=== PATIENT | female | born 1965 | race Caucasian/White ===

== ENCOUNTER 2017-04-08 08:15 | Outpatient (CLI) | payer BC, OTHER ==
[2017-04-08 12:41] LABS: BASOPHILS % (AUTO) 0.6 %; EOSINOPHILS # (AUTO) 0.1 10^3/uL (0.0-0.7); EOSINOPHILS % (AUTO) 1.5 %; HCT - HEMATOCRIT 43.8 % (37.0-47.0); HGB - HEMOGLOBIN 14.8 g/dL (12.0-16.0); LYMPHOCYTES # (AUTO) 2.5 10^3/uL (1.5-3.5); LYMPHOCYTES % (AUTO) 45.1 %; MEAN CORPUSCULAR HEMOGLOBIN 30.5 pg (27.0-31.0); MEAN CORPUSCULAR HGB CONC 33.8 g/dL (32.0-36.0); MEAN CORPUSCULAR VOLUME 90.3 fL (81.0-99.0); MEAN PLATELET VOLUME 8.5 fL (7.9-10.8); MONOCYTES # (AUTO) 0.4 10^3/uL (0.0-1.0); NEUTROPHILS # (AUTO) 2.6 10^3/uL (1.5-6.6); NEUTROPHILS % (AUTO) 45.8 %; NUCLEATED RED BLOOD CELLS AUTO 0.1 /100WBC; RED BLOOD COUNT 4.84 10^6/uL (4.20-5.40); RED CELL DISTRIBUTION WIDTH 13.2 % (12.0-15.0); UNCORRECTED WHITE BLOOD COUNT 5.6 x10^3/uL; WHITE BLOOD COUNT 5.6 x10^3/uL (4.8-10.8)
[2017-04-08 13:06] LABS: ALBUMIN/GLOBULIN RATIO 1.2 (1.0-2.2); BILIRUBIN,TOTAL 0.9 mg/dL (0.2-1.0); BUN - BLOOD UREA NITROGEN 19 mg/dL (6-20); CALCIUM 9.9 mg/dL (8.5-10.3); CARBON DIOXIDE - CO2 28 mmol/L (21-32); CHLORIDE 103 mmol/L (101-111); CHOLESTEROL 253 mg/dL; CREATININE 0.8 mg/dL (0.4-1.0); GFR - MDRD 76 (>89); GLUCOSE 87 mg/dL (70-100); HDL CHOLESTEROL 64 mg/dL; LDL/HDL RATIO 2.4 (<4.4); POTASSIUM 3.9 mmol/L (3.5-5.0); SODIUM 140 mmol/L (135-145); TOTAL PROTEIN 8.1 g/dL (6.7-8.2); TRIGLYCERIDES 170 mg/dL; VLDL CHOLESTEROL 34 mg/dL
== END 2017-04-08 08:16 | disposition home or self-care (01) ==
LOC: LAB.WCP 08:15
PROVIDERS: ATTEND Family Medicine
DX: Z00.00 Encounter for general adult medical examination without abnormal findings (principal); E78.5 Hyperlipidemia, unspecified; E03.9 Hypothyroidism, unspecified
CPT/HCPCS: 36415; 80053; 80061; 84443; 85025

== ENCOUNTER 2017-04-22 15:14 | Outpatient (CLI) | payer OTHER ==
--- NOTE | 2017-04-24 17:23 | Mammography Report ---
DIGITAL SCREENING MAMMOGRAM: 04/22/2017 CLINICAL INDICATION: A 52-year-old for screening. COMPARISON: 09/2015 TECHNIQUE: Routine CC and MLO projections were obtained of the breasts. FINDINGS: Parenchymal tissue within both breasts is heterogeneously dense, which may lower the sensi tivity of mammography; however, there are no dominant masses, suspicious microcalcifications, or seco ndary signs of malignancy. In comparison to the previous studies, there are no significant changes. ASSESSMENT: NO MAMMOGRAPHIC EVIDENCE OF MALIGNANCY. NO SIGNIFICANT INTERVAL CHANGES. RECOMMENDATION: Screening mammography is recommended annually. BIRADS category 1 - negative. STANDARD QUALIFYING STATEMENTS 1. This examination was reviewed with the aid of Computed-Aided Detection (CAD). 2. A negative or benign imaging report should not delay biopsy if clinically suspicious findings are present. Consider surgical consultation if warranted. More than 5% of cancers are not identified b y imaging. 3. Dense breasts may obscure an underlying neoplasm. JOB #: [id number] EXT JOB #:[id number]
== END 2017-04-22 15:15 | disposition home or self-care (01) ==
LOC: DI.N 15:14
PROVIDERS: ATTEND Family Medicine
DX: Z12.31 Encounter for screening mammogram for malignant neoplasm of breast (principal)
CPT/HCPCS: 77067

== ENCOUNTER 2019-09-28 13:35 | Outpatient (CLI) | payer OTHER ==
--- NOTE | 2019-09-29 09:26 | XRAY Report ---
Reason: BICEP TENDONITIS RIGHT Procedure Date: 09/28/2019 Accession Number: [id number] / [id number] Procedure: WCP - Shoulder 2 View RT CPT Code: Final Report FULL RESULT: EXAM: RIGHT SHOULDER RADIOGRAPHY EXAM DATE: 09/28/2019 02:18 PM. CLINICAL HISTORY: BICEP TENDONITIS RIGHT. COMPARISON: None. TECHNIQUE: 2 views. FINDINGS: Bones: Normal. No fracture or bone lesion. Joints: The glenohumeral and acromioclavicular joints are normal. Soft tissues: The visualized hemithorax is unremarkable. No soft tissue swelling. IMPRESSION: Normal shoulder radiography. RADIA
== END 2019-09-28 23:59 | disposition home or self-care (01) ==
LOC: DI.WCP 13:35
PROVIDERS: ATTEND Family Medicine
DX: M75.21 Bicipital tendinitis, right shoulder (principal)

== ENCOUNTER 2020-07-24 10:51 | Outpatient (CLI) | payer OTHER ==
[2020-07-24 18:39] LABS: BASOPHILS # (AUTO) 0.1 10^3/uL (0.0-0.1); BASOPHILS % (AUTO) 1.1 %; EOSINOPHILS # (AUTO) 0.2 10^3/uL (0.0-0.7); EOSINOPHILS % (AUTO) 3.6 %; HGB - HEMOGLOBIN 15.1 g/dL (12.0-16.0); LYMPHOCYTES # (AUTO) 1.9 10^3/uL (1.5-3.5); MEAN CORPUSCULAR HEMOGLOBIN 30.4 pg (27.0-31.0); MEAN CORPUSCULAR HGB CONC 31.9 g/dL (32.0-36.0); MEAN CORPUSCULAR VOLUME 95.4 fL (81.0-99.0); MEAN PLATELET VOLUME 10.8 fL (7.9-10.8); MONOCYTES # (AUTO) 0.3 10^3/uL (0.0-1.0); MONOCYTES % (AUTO) 6.1 %; PLT - PLATELET COUNT 278 10^3/uL (130-450); RED BLOOD COUNT 4.96 10^6/uL (4.20-5.40); RED CELL DISTRIBUTION WIDTH 12.8 % (12.0-15.0); WHITE BLOOD COUNT 4.4 x10^3/uL (4.8-10.8)
[2020-07-24 19:03] LABS: ALBUMIN 4.5 g/dL (3.2-5.5); ALBUMIN/GLOBULIN RATIO 1.3 (1.0-2.2); ALKALINE PHOSPHATASE 84 IU/L (42-121); ALT ALANINE AMINOTRANSFERASE 20 IU/L (10-60); AST ASPARTATE AMINOTRANSFERASE 21 IU/L (10-42); BUN - BLOOD UREA NITROGEN 21 mg/dL (6-20); CARBON DIOXIDE - CO2 27 mmol/L (21-32); CHLORIDE 99 mmol/L (101-111); CHOL/HDL RATIO 4.2 (<4.4); CHOLESTEROL 275 mg/dL; CREATININE 0.8 mg/dL (0.4-1.0); GLUCOSE 91 mg/dL (70-100); HDL CHOLESTEROL 66 mg/dL; LDL CHOLESTEROL,CALCULATED 173 mg/dL; LDL/HDL RATIO 2.6 (<4.4); SODIUM 142 mmol/L (135-145); VLDL CHOLESTEROL 36 mg/dL
== END 2020-07-24 10:52 | disposition home or self-care (01) ==
LOC: LAB.N 10:51
PROVIDERS: ATTEND Family Medicine
DX: Z00.00 Encounter for general adult medical examination without abnormal findings (principal); E03.9 Hypothyroidism, unspecified
CPT/HCPCS: 36415; 80053; 80061; 83721; 84443; 85025

== ENCOUNTER 2020-08-22 08:44 | Outpatient (CLI) | payer OTHER ==
--- NOTE | 2020-08-23 12:28 | Mammography Report ---
BILATERAL DIGITAL SCREENING MAMMOGRAM 3D/2D: 08/22/2020 CLINICAL: Routine screening. Comparison is made to exams dated: 04/22/2017 mammogram and 09/19/2015 mammogram - [facility]. The tissue of both breasts is heterogeneously dense. This may lower the sensitivity of mamm ography. No significant masses, calcifications, or other findings are seen in either breast. There has been no significant interval change. IMPRESSION: NEGATIVE There is no mammographic evidence of malignancy. A 1 year screening mammogram is recommended. This exam was interpreted at Station ID: [id number]. NOTE: For mammograms, a report in lay terms will be sent to the patient. Approximately 15% of breast malignancies will not be visualized mammographically. In the management of a palpable breast mass, a negative mammogram must not discourage biopsy of a clinically suspicious lesion. Electronically Signed By: Harpal Arredondo M.D. ar/malloryrad:08/22/2020 09:30:23 ACR BI-RADS Category 1: Negative 3341F PARENCHYMAL PATTERN: (D) - The breast(s) demonstrate(s) heterogeneously dense fibroglandular norman rojas. BI-RADS CATEGORY: (1) - 1 RECOMMENDATION: (ANNUAL) - Recommend routine annual screening mammography. [id number] 1 year screening LATERALITY: (B)
== END 2020-08-22 08:45 | disposition home or self-care (01) ==
LOC: DI.N 08:44
DX: Z12.31 Encounter for screening mammogram for malignant neoplasm of breast (principal)
CPT/HCPCS: 77067

== ENCOUNTER 2021-07-30 16:28 | Outpatient (CLI) | payer OTHER ==
[2021-07-30 21:10] LABS: BASOPHILS # (AUTO) 0.1 10^3/uL (0.0-0.1); EOSINOPHILS # (AUTO) 0.1 10^3/uL (0.0-0.7); EOSINOPHILS % (AUTO) 2.5 %; HCT - HEMATOCRIT 46.4 % (37.0-47.0); LYMPHOCYTES # (AUTO) 1.9 10^3/uL (1.5-3.5); LYMPHOCYTES % (AUTO) 40.1 %; MEAN CORPUSCULAR HEMOGLOBIN 30.4 pg (27.0-31.0); MEAN CORPUSCULAR HGB CONC 32.3 g/dL (32.0-36.0); MEAN CORPUSCULAR VOLUME 94.1 fL (81.0-99.0); MEAN PLATELET VOLUME 10.5 fL (7.9-10.8); MONOCYTES # (AUTO) 0.3 10^3/uL (0.0-1.0); MONOCYTES % (AUTO) 6.6 %; NEUTROPHILS # (AUTO) 2.4 10^3/uL (1.5-6.6); NEUTROPHILS % (AUTO) 49.4 %; PLT - PLATELET COUNT 282 10^3/uL (130-450); RED BLOOD COUNT 4.93 10^6/uL (4.20-5.40); RED CELL DISTRIBUTION WIDTH 12.7 % (12.0-15.0); WHITE BLOOD COUNT 4.8 x10^3/uL (4.8-10.8)
[2021-07-30 21:26] LABS: ALBUMIN 4.4 g/dL (3.2-5.5); ALBUMIN/GLOBULIN RATIO 1.4 (1.0-2.2); ALKALINE PHOSPHATASE 71 IU/L (42-121); ALT ALANINE AMINOTRANSFERASE 20 IU/L (10-60); AST ASPARTATE AMINOTRANSFERASE 18 IU/L (10-42); BILIRUBIN,TOTAL 0.8 mg/dL (0.2-1.0); BUN - BLOOD UREA NITROGEN 22 mg/dL (6-20); CALCIUM 9.1 mg/dL (8.5-10.3); CARBON DIOXIDE - CO2 29 mmol/L (21-32); CHLORIDE 102 mmol/L (101-111); CHOL/HDL RATIO 2.8 (<4.4); CHOLESTEROL 188 mg/dL; CREATININE 0.9 mg/dL (0.4-1.0); GFR - MDRD 65 (>89); GLUCOSE 93 mg/dL (70-100); HDL CHOLESTEROL 68 mg/dL; LDL CHOLESTEROL,CALCULATED 90 mg/dL; LDL/HDL RATIO 1.3 (<4.4); SODIUM 141 mmol/L (135-145); TOTAL PROTEIN 7.6 g/dL (6.7-8.2); TRIGLYCERIDES 148 mg/dL; VLDL CHOLESTEROL 30 mg/dL
[2021-07-30 21:38] LABS: THYROID STIMULATING HORMONE 1.52 uIU/mL (0.34-5.60)
== END 2021-07-30 16:29 | disposition home or self-care (01) ==
LOC: LAB.N 16:28
PROVIDERS: ATTEND Family Medicine
DX: Z00.00 Encounter for general adult medical examination without abnormal findings (principal); E78.5 Hyperlipidemia, unspecified; E03.9 Hypothyroidism, unspecified
CPT/HCPCS: 36415; 80053; 80061; 83721; 84443; 85025

== ENCOUNTER 2021-08-01 08:00 | Outpatient (CLI) | payer OTHER ==
[2021-08-01 19:22] LABS: FECAL OCCULT BLOOD (FIT) NEGATIVE (NEGATIVE)
== END 2021-08-01 23:59 ==
LOC: LAB 08:00
PROVIDERS: ATTEND Family Medicine
DX: Z12.11 Encounter for screening for malignant neoplasm of colon (principal)
CPT/HCPCS: 82274

== ENCOUNTER 2021-11-07 08:14 | Outpatient (CLI) | payer OTHER ==
--- NOTE | 2021-11-08 11:01 | Mammography Report ---
BILATERAL DIGITAL SCREENING MAMMOGRAM 3D/2D: 11/07/2021 CLINICAL: Routine screening. Comparison is made to exams dated: 08/22/2020 mammogram, 04/22/2017 mammogram, and 09/19/2015 mammogram - [facility]. The tissue of both breasts is heterogeneously dense. This may lower th e sensitivity of mammography. No significant masses, calcifications, or other findings are seen in either breast. There has been no significant interval change. IMPRESSION: NEGATIVE There is no mammographic evidence of malignancy. A 1 year screening mammogram is recommended. This exam was interpreted at Station ID: [id number]. NOTE: For mammograms, a report in lay terms will be sent to the patient. Approximately 15% of breast malignancies will not be visualized mammographically. In the management of a palpable breast mass, a negative mammogram must not discourage biopsy of a clinically suspicious lesion. Electronically Signed By: Grayson Washburn M.D. aty/penrad:11/07/2021 17:26:58 ACR BI-RADS Category 1: Negative 3341F PARENCHYMAL PATTERN: (D) - The breast(s) demonstrate(s) heterogeneously dense fibroglandular norman rojas. BI-RADS CATEGORY: (1) - 1 RECOMMENDATION: (ANNUAL) - Recommend routine annual screening mammography. [id number] 1 year screening LATERALITY: (B)
== END 2021-11-07 08:15 | disposition home or self-care (01) ==
LOC: DI.N 08:14
PROVIDERS: ATTEND Physician Assistant
DX: Z12.31 Encounter for screening mammogram for malignant neoplasm of breast (principal)

== ENCOUNTER 2024-02-26 10:43 | Outpatient (CLI) | payer OTHER ==
--- NOTE | 2024-02-27 09:06 | Mammography Report ---
BILATERAL DIGITAL SCREENING MAMMOGRAM 3D/2D: 02/26/2024 CLINICAL: Routine screening. Comparison is made to exams dated: 11/07/2021 mammogram, 08/22/2020 mammogram, 04/22/2017 mammogram, and 09/19/2015 mammogram - [facility]. Both breasts are heterogeneously dense, which may obscure small masses (category c / 51-75% glandular tissue). No significant masses, calcifications, or other findings are seen in either breast. There has been no significant interval change. IMPRESSION: NEGATIVE There is no mammographic evidence of malignancy. A 1 year screening mammogram is recommended. Based on the Tyrer Cuzick model (a risk assessment model) the patient's lifetime risk is 12.3% and he r 10 year risk is 4.3%. According to the ACR, ACS, and NCCN guidelines, an annual breast MRI exam miguelangel ng with mammogram is recommended if the patient's lifetime risk is 20% or greater. This exam was interpreted at Station ID: [id number]. NOTE: For mammograms, a report in lay terms will be sent to the patient. Approximately 15% of breast malignancies will not be visualized mammographically. In the management of a palpable breast mass, a negative mammogram must not discourage biopsy of a clinically suspicious lesion. Electronically Signed By: Grayson marcelo/bea:02/26/2024 22:49:41 letter sent: No_Letter ACR BI-RADS Category 1: Negative 3341F PARENCHYMAL PATTERN: (D) - The breast(s) demonstrate(s) heterogeneously dense fibroglandular norman rojas. BI-RADS CATEGORY: (1) - 1 RECOMMENDATION: (ANNUAL) - Recommend routine annual screening mammography. [id number] 1 year screening LATERALITY: (B)
== END 2024-02-26 10:44 | disposition home or self-care (01) ==
LOC: DI.N 10:43
PROVIDERS: ATTEND Student in an Organized Health Care Education/Training Program
DX: Z12.31 Encounter for screening mammogram for malignant neoplasm of breast (principal); R92.333 Mammographic heterogeneous density, bilateral breasts